=== PATIENT | female | born 1990 ===

== ENCOUNTER 2020-06-11 11:57 | Emergency (ER) | payer MEDICAID ==
[~2020-06-11] VITALS: Ht 167.6 cm; Wt 103.5 kg
[2020-06-11 12:41] VITALS: BP 121/76
--- NOTE | 2020-06-11 12:45 | NUR ---
Pt here for COVID symptoms, needs test in order to return to work. No symptoms and feels fine.
--- NOTE | 2020-06-11 12:47 | NUR ---
dPatient/Caregiver given discharge instructions and they have confirmed that they understand the instructions. Patient ambulatory with steady gait.
== END 2020-06-11 12:53 ==
LOC: ED 12:30
DX: Z20.828 Contact with and (suspected) exposure to other viral communicable diseases (principal); F17.200 Nicotine dependence, unspecified, uncomplicated
CPT/HCPCS: 36415; 87635; 99283